=== PATIENT | female | born 1975 | race Caucasian/White ===

== ENCOUNTER 2017-10-11 04:38 | Emergency (ER) | payer BC ==
[2017-10-11] MEDS: KETOROLAC 30 MG INJ IM (07:02)
== END 2017-10-11 09:48 | disposition home or self-care (01) ==
LOC: FTE 04:38
DX: M50.30 Other cervical disc degeneration, unspecified cervical region (principal)
CPT/HCPCS: 72125; 96372; 99285-25

== ENCOUNTER → 2018-04-10 | Outpatient (CLI) | payer BC | END | disposition home or self-care (01) | LOC: U/S 07:58 | DX: R10.2 Pelvic and perineal pain (principal) | CPT/HCPCS: 76700; 76830; 76856 ==

== ENCOUNTER 2018-06-26 05:31 | Observation (INO) | payer BC ==
[2018-06-22 10:17] LABS: ADD MAN DIFF? NO
[2018-06-22 10:27] LABS: ADD UMIC NO; UR ASCORBIC ACID NEGATIVE (NEGATIVE); UR BILIRUBIN (Dip) NEGATIVE (NEGATIVE); UR BLOOD (Dip) NEGATIVE (NEGATIVE); UR CLARITY CLEAR (CLEAR); UR COLOR YELLOW (YELLOW); UR GLUCOSE (Dip) NEGATIVE (NEGATIVE); UR KETONES (Dip) NEGATIVE (NEGATIVE); UR LEUKOCYTE ESTERASE (Dip) NEGATIVE Leu/ul (NEGATIVE); UR NITRITE (Dip) NEGATIVE (NEGATIVE); UR SPECIFIC GRAVITY (Dip) 1.016 (1.003-1.030); UR TOTAL PROTEIN (Dip) NEGATIVE (NEGATIVE); UR UROBILINOGEN (Dip) NEGATIVE (NEGATIVE)
[2018-06-22 10:34] LABS: BASOPHIL # 0.1 10^3/ul (0.0-0.1); BASOPHILS % 0.6 % (0.0-2.0); EOSINOPHILS % 0.4 % (0.0-7.0); HEMATOCRIT 44.1 % (37.0-47.0); HEMOGLOBIN 14.2 g/dl (12.0-16.0); LYMPHOCYTES # 2.4 10^3/ul (0.8-2.9); LYMPHOCYTES % 30.5 % (15.0-51.0); MEAN CORPUSCULAR HEMOGLOBIN 29.2 pg (29.0-33.0); MEAN CORPUSCULAR HGB CONC 32.2 g/dl (32.0-37.0); MEAN CORPUSCULAR VOLUME 90.6 fl (82.0-101.0); MEAN PLATELET VOLUME 10.7 fl (7.4-10.4); MONOCYTE # 0.5 10^3/ul (0.3-0.9); MONOCYTES % 6.6 % (0.0-11.0); NEUTROPHIL # 4.8 10^3/ul (1.6-7.5); NEUTROPHILS % 61.8 % (39.0-77.0); PLATELET COUNT 272 10^3/UL (140-415); RED BLOOD COUNT 4.87 10^6/ul (4.20-5.40); RED CELL DISTRIBUTION WIDTH 12.7 % (11.5-14.5)
[2018-06-22 10:34] LABS: WHITE BLOOD COUNT 7.7 10^3/ul (4.8-10.8)
[2018-06-22 10:42] LABS: INR 0.99; PROTIME 13.2 Sec (11.9-14.9)
[2018-06-22 10:43] LABS: PARTIAL THROMBOPLASTIN TIME 29.2 Sec (23.0-35.0)
[2018-06-22 11:02] LABS: ANION GAP 12 (8-16); BLOOD UREA NITROGEN 12 mg/dl (7-20); CARBON DIOXIDE 28 mmol/L (21-31); CHLORIDE 105 mmol/L (97-110); CHOL/HDL RATIO 3.2 RATIO; CHOLESTEROL 190 mg/dl (100-200); CREATININE 0.75 mg/dl (0.44-1.00); GLUCOSE 96 mg/dl (70-220); HDL CHOLESTEROL 58 mg/dl (34-88); LDL CHOLESTEROL,CALCULATED 114 mg/dl; POTASSIUM 4.1 mmol/L (3.5-5.1); SODIUM 141 mmol/L (135-144); TRIGLYCERIDES 90 mg/dl (0-149)
[2018-06-22 11:51] LABS: HIV 1&2 ANTIBODY NEGATIVE (NEGATIVE)
[2018-06-26] MEDS ORDERED: CEFAZOLIN 2 GM/50 ML (PMX) 50 ML IVPB (06:30)
[2018-06-26] MEDS ORDERED: MEPERIDINE 25 MG INJ IV (07:00)
[2018-06-26] MEDS ORDERED: FENTAnyl 50 MCG/ML VIAL IV (07:00)
[2018-06-26] MEDS ORDERED: ALBUTEROL 0.083% (NEB) 2.5 MG/3 ML AMP HHN (07:00)
[2018-06-26] MEDS ORDERED: DIPHENHYDRAMINE 50 MG INJ IV (07:00)
[2018-06-26] MEDS ORDERED: OXYCODONE/ACETAMINOPHEN (5/325) TAB PO ×2 (07:00)
[2018-06-26] MEDS ORDERED: LABETALOL HCL 20MG INJ IV (07:00)
[2018-06-26] MEDS ORDERED: ONDANSETRON 4 MG INJ IV (07:00)
[2018-06-26] MEDS ORDERED: HYDROmorphONE 1 MG/5 ML IV SYRINGE IV ×2 (07:00)
[2018-06-26] MEDS ORDERED: morphine (1 MG/ML) 10ML SYRINGE IV ×2 (07:00)
[2018-06-26] MEDS: LACTATED RINGER'S 1,000 ML IV ×3 (07:00→16:42)
[2018-06-26] MEDS ORDERED: DESFLURANE 15 MIN (07:00)
[2018-06-26] MEDS ORDERED: DEXAMETHASONE 4 MG/ML 1 ML INJ (07:21)
[2018-06-26] MEDS ORDERED: ROCURONIUM 50 MG INJ (07:21)
[2018-06-26] MEDS ORDERED: LIDOCAINE 2% (SDV) 5 ML INJ (07:21)
[2018-06-26] MEDS ORDERED: ONDANSETRON 4 MG INJ (07:21)
[2018-06-26] MEDS ORDERED: MIDAZOLAM 1 MG/ML 2 ML INJ (07:21)
[2018-06-26] MEDS ORDERED: PROPOFOL 40 ML (07:21)
[2018-06-26] MEDS ORDERED: FAMOTIDINE 20 MG INJ (07:21)
[2018-06-26] MEDS ORDERED: ACETAMINOPHEN 1000MG/100ML IV 100 ML (07:22)
[2018-06-26] MEDS ORDERED: CEFAZOLIN 1 GM INJ (07:22)
[2018-06-26] MEDS: LIDOCAINE 1%/EPI 30 ML INJ (07:35)
[2018-06-26] MEDS: POLYMYXIN/BACITRACIN 1L IRRIG (07:35)
[2018-06-26] MEDS ORDERED: PHENYLephrine (100 MCG/ML) 5ML SYG (08:32)
[2018-06-26] MEDS ORDERED: EPHEDrine SULFATE 50 MG/5 ML SYG (08:32)
[2018-06-26] MEDS ORDERED: SUGAMMADEX SODIUM 200 MG/2 ML VIAL IV (09:15)
[2018-06-26] MEDS ORDERED: HYDROCODONE/APAP (5/325) TAB PO ×2 (10:00)
[2018-06-26] MEDS ORDERED: BISACODYL (EC) 5 MG TAB PO (10:00)
[2018-06-26] MEDS ORDERED: ONDANSETRON INJ 6 MG in DEXTROSE 5% 50 ML IVPB (10:00)
[2018-06-26] MEDS ORDERED: ZOLPIDEM 5 MG TAB PO (10:00)
[2018-06-26] MEDS ORDERED: DIPHENHYDRAMINE 50 MG CAP PO (10:00)
[2018-06-26] MEDS ORDERED: HYDROmorphONE 1 MG/ML SYG IV (10:00)
[2018-06-26] MEDS: FENTAnyl 50 MCG/ML VIAL IV (10:30)
[2018-06-26] MEDS: METOCLOPRAMIDE 10 MG TAB PO ×2 (12:23→17:51)
[2018-06-26] MEDS: KETOROLAC 30 MG INJ IV ×2 (12:23→17:52)
[2018-06-26] MEDS: CEFAZOLIN 1 GM/50 ML (PMX) 50 ML IVPB ×2 (14:07→23:10)
[2018-06-27] MEDS: METOCLOPRAMIDE 10 MG TAB PO ×3 (00:02→11:28)
[2018-06-27] MEDS: KETOROLAC 30 MG INJ IV ×2 (00:03→05:35)
[2018-06-27] MEDS: LACTATED RINGER'S 1,000 ML IV ×2 (02:18→09:46)
[2018-06-27] MEDS: CEFAZOLIN 1 GM/50 ML (PMX) 50 ML IVPB ×2 (05:34→14:00)
[2018-06-27 06:54] LABS: ADD MAN DIFF? NO
[2018-06-27 07:02] LABS: BASOPHILS % 0.4 % (0.0-2.0); EOSINOPHILS % 0.2 % (0.0-7.0); HEMATOCRIT 32.3 % (37.0-47.0); HEMOGLOBIN 10.5 g/dl (12.0-16.0); LYMPHOCYTES # 3.3 10^3/ul (0.8-2.9); LYMPHOCYTES % 28.9 % (15.0-51.0); MEAN CORPUSCULAR HEMOGLOBIN 29.7 pg (29.0-33.0); MEAN CORPUSCULAR HGB CONC 32.5 g/dl (32.0-37.0); MEAN CORPUSCULAR VOLUME 91.5 fl (82.0-101.0); MONOCYTES % 8.5 % (0.0-11.0); NEUTROPHILS % 61.9 % (39.0-77.0); PLATELET COUNT 207 10^3/UL (140-415); RED BLOOD COUNT 3.53 10^6/ul (4.20-5.40); RED CELL DISTRIBUTION WIDTH 12.7 % (11.5-14.5)
[2018-06-27 07:02] LABS: WHITE BLOOD COUNT 11.3 10^3/ul (4.8-10.8)
[2018-06-27 07:26] LABS: ANION GAP 9 (8-16); BLOOD UREA NITROGEN 8 mg/dl (7-20); CARBON DIOXIDE 27 mmol/L (21-31); CHLORIDE 107 mmol/L (97-110); CREATININE 0.63 mg/dl (0.44-1.00); POTASSIUM 3.7 mmol/L (3.5-5.1); SODIUM 139 mmol/L (135-144)
== END 2018-06-27 14:30 | disposition home or self-care (01) ==
LOC: SDS 05:31 → REC 09:45 → PP2 11:25
DX: N81.10 Cystocele, unspecified (principal); N81.6 Rectocele; D25.9 Leiomyoma of uterus, unspecified; N39.3 Stress incontinence (female) (male); K59.00 Constipation, unspecified; N81.89 Other female genital prolapse
CPT/HCPCS: 57260; 71045; 80048; 80051; 80061; 81003; 82565; 84520; 84703; 85025; 85610; 85730; 86703; 86850; 86900; 86901; 87086; 88305; 93005; G0378